=== PATIENT | female | born 1995 | race African-American/Black ===

== ENCOUNTER 2017-10-03 11:17 | Emergency (ER) | payer SELFPAY ==
[~2017-10-03] VITALS: Ht 160 cm; Wt 82.0 kg
[~2017-10-03 11:17] MED LIST: NAPROSYN500 MG PO
[2017-10-03] MEDS ORDERED: FLEXERIL10 MG PO (13:36)
[2017-10-03] MEDS ORDERED: MOTRIN800 MG PO (13:36)
[2017-10-03 13:47] VITALS: BP 140/95
== END 2017-10-03 13:48 | disposition home or self-care (01) ==
LOC: EME 11:17
DX: M54.5 Low back pain (principal); Z32.02 Encounter for pregnancy test, result negative
CPT/HCPCS: 84702; 99281; 99283

== ENCOUNTER 2017-11-09 16:44 | Emergency (ER) | payer SELFPAY ==
[~2017-11-09] VITALS: Ht 157.5 cm; Wt 94.9 kg
[~2017-11-09 16:44] MED LIST changes: +FLEXERIL10 MG PO; +MOTRIN800 MG PO
[2017-11-09 17:33] LABS: APPEARANCE CLEAR ((CLEAR)); BILIRUBIN NEGATIVE; BLOOD NEGATIVE; COLOR YELLOW ((YELLOW)); GLUCOSE (STRIP) NEGATIVE; KETONES NEGATIVE; LEUKOCYTES NEGATIVE; NITRITE NEGATIVE; PROTEIN (STRIP) NEGATIVE; SPECIFIC GRAVITY 1.024 (1.000-1.030); UCUL ADDED? NO; UROBILINOGEN 0.2 MG/DL (0.2-1.0)
[2017-11-09 17:40] LABS: HEMATOCRIT 39.6 % (36.0-46.0); HEMOGLOBIN 13.5 G/DL (11.9-15.5); MCH 29.7 PG (29.0-34.0); MCHC 34.1 G/DL (30.0-36.0); PLATELET COUNT 236 K/uL (156-360); RED BLOOD COUNT 4.55 M/uL (3.80-5.20); WHITE BLOOD COUNT 9.3 K/uL (4.1-10.2)
[2017-11-09 17:51] LABS: ALBUMIN 4.3 g/dL (3.2-4.8)
[2017-11-09 17:52] LABS: CHLORIDE 106 mEq/L (99-109); POTASSIUM 4.6 mEq/L (3.7-5.4); SODIUM 139 mEq/L (136-147)
[2017-11-09 17:54] LABS: GLUCOSE 85 mg/dL (70-99); TOTAL PROTEIN 7.9 g/dL (6.4-8.3)
[2017-11-09 17:56] LABS: TOTAL BILIRUBIN 0.4 mg/dL (0.0-1.0)
[2017-11-09 17:57] LABS: ALKALINE PHOSPHATASE 67 IU/L (3-129)
[2017-11-09 17:58] LABS: CREATININE 0.8 mg/dL (0.6-1.3); GFR ESTIMATE (CALCULATED) > 59 mL/min/
[2017-11-09 17:59] LABS: AST (GOT) 24 IU/L (2-34); UREA NITROGEN (BUN) 18 mg/dL (9-23)
[2017-11-09 18:00] LABS: ALT (GPT) 25 IU/L (3-49)
[2017-11-09 18:01] LABS: LIPASE 30 U/L (1.0-51.0)
[2017-11-09 18:09] LABS: QUANTITATIVE HCG 118.4 MIU/ML
[2017-11-09] MEDS ORDERED: ZOFRAN ODT4 MG PO (19:33)
[2017-11-09 21:09] VITALS: BP 142/96
== END 2017-11-09 21:09 | disposition home or self-care (01) ==
LOC: EME 16:44
DX: O34.81 Maternal care for other abnormalities of pelvic organs, first trimester (principal); N83.202 Unspecified ovarian cyst, left side; O21.9 Vomiting of pregnancy, unspecified; R19.7 Diarrhea, unspecified; R51 Headache; M54.5 Low back pain; Z80.3 Family history of malignant neoplasm of breast; Z80.41 Family history of malignant neoplasm of ovary; O99.331 Smoking (tobacco) complicating pregnancy, first trimester; F17.210 Nicotine dependence, cigarettes, uncomplicated; Z3A.01 Less than 8 weeks gestation of pregnancy
CPT/HCPCS: 76801; 80053; 81003; 83690; 84702; 85027; 99281; 99284

== ENCOUNTER 2017-11-14 15:03 | Emergency (ER) | payer SELFPAY ==
[~2017-11-14] VITALS: Ht 160 cm; Wt 93.7 kg
[~2017-11-14 15:03] MED LIST changes: +ZOFRAN ODT4 MG PO
[2017-11-14 15:28] LABS: HEMATOCRIT 40.5 % (36.0-46.0); HEMOGLOBIN 13.9 G/DL (11.9-15.5); MCH 29.4 PG (29.0-34.0); MCHC 34.3 G/DL (30.0-36.0); MCV 85.8 FL (83-99); PLATELET COUNT 257 K/uL (156-360); RBC DIS.WIDTH-CV 12.9 % (11.8-14.6); RED BLOOD COUNT 4.72 M/uL (3.80-5.20); WHITE BLOOD COUNT 9.8 K/uL (4.1-10.2)
[2017-11-14 15:40] LABS: ALBUMIN 4.4 g/dL (3.2-4.8); CHLORIDE 110 mEq/L (99-109); POTASSIUM 4.2 mEq/L (3.7-5.4); SODIUM 140 mEq/L (136-147)
[2017-11-14 15:42] LABS: GLUCOSE 99 mg/dL (70-99)
[2017-11-14 15:46] LABS: ALKALINE PHOSPHATASE 62 IU/L (3-129); CREATININE 0.7 mg/dL (0.6-1.3); GFR ESTIMATE (CALCULATED) > 59 mL/min/
[2017-11-14 15:47] LABS: UREA NITROGEN (BUN) 12 mg/dL (9-23)
[2017-11-14 15:48] LABS: AST (GOT) 16 IU/L (2-34)
[2017-11-14 15:49] LABS: ALT (GPT) 24 IU/L (3-49)
[2017-11-14 15:51] LABS: TOTAL BILIRUBIN 0.3 mg/dL (0.0-1.0)
[2017-11-14 15:54] LABS: QUANTITATIVE HCG 901.3 MIU/ML
[2017-11-14 16:00] LABS: APPEARANCE CLEAR ((CLEAR)); BILIRUBIN NEGATIVE; BLOOD NEGATIVE; COLOR YELLOW ((YELLOW)); GLUCOSE (STRIP) NEGATIVE; KETONES NEGATIVE; LEUKOCYTES NEGATIVE; NITRITE NEGATIVE; PROTEIN (STRIP) NEGATIVE; SPECIFIC GRAVITY 1.025 (1.000-1.030); UCUL ADDED? NO; UROBILINOGEN 0.2 MG/DL (0.2-1.0)
[2017-11-14 19:16] VITALS: BP 181/148
== END 2017-11-14 19:16 | disposition left against medical advice (07) ==
LOC: EME 15:03
PROVIDERS: Nurse Practitioner Family; Physician Assistant
DX: O00.90 Unspecified ectopic pregnancy without intrauterine pregnancy (principal); F17.200 Nicotine dependence, unspecified, uncomplicated
CPT/HCPCS: 76801; 80053; 81003; 84702; 85027; 99281; 99282

== ENCOUNTER 2017-12-19 16:54 | Emergency (ER) | payer SELFPAY ==
[~2017-12-19] VITALS: Ht 160 cm; Wt 97.4 kg
[2017-12-19 17:57] LABS: HEMATOCRIT 33.6 % (36.0-46.0); HEMOGLOBIN 11.5 G/DL (11.9-15.5); MCH 29.6 PG (29.0-34.0); MCHC 34.2 G/DL (30.0-36.0); MCV 86.6 FL (83-99); PLATELET COUNT 223 K/uL (156-360); RBC DIS.WIDTH-CV 12.8 % (11.8-14.6); RBC DIS.WIDTH-SD 40.5 % (39-53); RED BLOOD COUNT 3.88 M/uL (3.80-5.20); WHITE BLOOD COUNT 9.7 K/uL (4.1-10.2)
[2017-12-19 18:08] LABS: CHLORIDE 104 mEq/L (99-109); SODIUM 134 mEq/L (136-147)
[2017-12-19 18:09] LABS: GLUCOSE 104 mg/dL (70-99)
[2017-12-19 18:13] LABS: CREATININE 0.7 mg/dL (0.6-1.3); GFR ESTIMATE (CALCULATED) > 59 mL/min/
[2017-12-19 18:14] LABS: UREA NITROGEN (BUN) 9 mg/dL (9-23)
[2017-12-19 18:40] LABS: QUANTITATIVE HCG 56288.7 MIU/ML
[2017-12-19 19:35] LABS: APPEARANCE CLEAR ((CLEAR)); BILIRUBIN NEGATIVE; BLOOD NEGATIVE; COLOR YELLOW ((YELLOW)); GLUCOSE (STRIP) NEGATIVE; KETONES NEGATIVE; LEUKOCYTES NEGATIVE; NITRITE NEGATIVE; PROTEIN (STRIP) 30; SPECIFIC GRAVITY 1.017 (1.000-1.030); UCUL ADDED? NO; UROBILINOGEN 0.2 MG/DL (0.2-1.0)
[2017-12-19] MEDS ORDERED: ZOFRAN ODT4 MG PO (20:04)
[2017-12-19 20:24] VITALS: BP 104/81
== END 2017-12-19 20:25 | disposition home or self-care (01) ==
LOC: EME 16:54
PROVIDERS: Physician Assistant
DX: O21.9 Vomiting of pregnancy, unspecified (principal); R51 Headache; O34.81 Maternal care for other abnormalities of pelvic organs, first trimester; N83.202 Unspecified ovarian cyst, left side; O99.331 Smoking (tobacco) complicating pregnancy, first trimester; Z72.0 Tobacco use; Z3A.09 9 weeks gestation of pregnancy
CPT/HCPCS: 76801; 80048; 81003; 84702; 85027; 99281; 99285; J2405; J7030